=== PATIENT | female | born 1950 | race Two or more races ===

== ENCOUNTER 2021-03-10 10:09 | Outpatient (CLI) | payer OTHER | END 2021-03-10 10:32 | disposition home or self-care (01) | LOC: SONOGRAMA 10:09 | PROVIDERS: ATTEND Surgery | DX: D24.1 Benign neoplasm of right breast (principal); R92.0 Mammographic microcalcification found on diagnostic imaging of breast; N60.11 Diffuse cystic mastopathy of right breast; N60.12 Diffuse cystic mastopathy of left breast ==

== ENCOUNTER 2022-03-11 11:46 | Inpatient (IN) | payer OTHER ==
[~2022-03-11] VITALS: Ht 144.8 cm; Wt 50.8 kg
[2022-03-11] MEDS ORDERED: DIOVAN160 M1 PO (12:10)
--- NOTE | 2022-03-11 12:19 | NUR ---
SE RECIB EPTE ALERTA Y ORIENTADA X3,REFIERE TENR NAUSEAS ,SE SIENTE CORTA DE RESPIRACION SE LE MAURO S/V SE COMODA PTE SE LE REALIZA EKG.
--- NOTE | 2022-03-11 13:15 | NUR ---
PTE EVALUADA POR DR OQUENDO. SE ORIENTA PTE SOBRE TX LO CUAL REFIERE ENTENDER. SE REALIZA ROBERTA DE MUESTRAS UTILIZANDO TECNICAS ASEPTICAS. PTE PENDIENTE A RALIZAR XRAY Y RESULTADOS DE LABORATORIO.
[2022-03-17] MEDS ORDERED: DIOVAN160 M1 PO (17:20)
[2022-03-17] MEDS ORDERED: LIPITOR40 MG PO (17:20)
[2022-03-17] MEDS ORDERED: INTESTINEX680 M1 PO (17:21)
[2022-03-17] MEDS ORDERED: FAMOTIDINE20 MG PO (17:21)
[2022-03-17] MEDS ORDERED: ST. JOSEPH ASPI81 M2 PO (17:21)
[2022-03-17] MEDS ORDERED: CEFDINIR300 MG PO (17:23)
== END 2022-03-17 19:44 | disposition home or self-care (01) | DRG 690 ==
LOC: ER 11:46 → MEDJ 20:27 → MEDI 20:27
PROVIDERS: ADMIT Internal Medicine; ATTEND Internal Medicine
PROC: BW28ZZZ Computerized Tomography (CT Scan) of Head (ICD-10-PCS; principal; 2022-03-11)
PROC: BW21ZZZ Computerized Tomography (CT Scan) of Abdomen and Pelvis (ICD-10-PCS; 2022-03-11)
PROC: BW24ZZZ Computerized Tomography (CT Scan) of Chest and Abdomen (ICD-10-PCS; 2022-03-11)
DX: N39.0 Urinary tract infection, site not specified (principal); N17.8 Other acute kidney failure; E86.0 Dehydration; E87.8 Other disorders of electrolyte and fluid balance, not elsewhere classified; R41.82 Altered mental status, unspecified; Z86.73 Personal history of transient ischemic attack (TIA), and cerebral infarction without residual deficits; Z20.822 Contact with and (suspected) exposure to COVID-19; I11.9 Hypertensive heart disease without heart failure

== ENCOUNTER 2022-03-25 18:41 | Emergency (ER) | payer OTHER ==
[~2022-03-25] VITALS: Ht 144.8 cm; Wt 50.8 kg
[~2022-03-25 18:41] MED LIST: CEFDINIR300 MG PO; DIOVAN160 M1 PO; FAMOTIDINE20 MG PO; INTESTINEX680 M1 PO; LIPITOR40 MG PO; ST. JOSEPH ASPI81 M2 PO
== END 2022-03-25 22:14 | disposition home or self-care (01) ==
LOC: ER 18:41
DX: B34.9 Viral infection, unspecified (principal); I10 Essential (primary) hypertension; Z88.8 Allergy status to other drugs, medicaments and biological substances; E78.00 Pure hypercholesterolemia, unspecified; Z20.822 Contact with and (suspected) exposure to COVID-19